=== PATIENT | male | born 1970 | race Caucasian/White ===

== ENCOUNTER 2016-07-14 14:21 | Emergency (ER) | payer OTHER ==
[2016-07-14 15:01] LABS: BASO % 0.2 % (0.2-1.2); EOS # 0.1 10_X3_uL (0.0-0.5); EOS % 1.1 % (0.8-7.0); GRAN # 8.9 10_X3_uL (1.8-5.4); GRAN % 73.5 % (34.0-67.9); LYMPH # 2.2 10_X3_uL (1.3-3.6); LYMPH % 17.8 % (21.8-53.1); MEAN CORPUSCULAR HEMOGLOBIN 33.5 pg (27.0-33.0); MEAN CORPUSCULAR HGB CONC 34.1 g/dL (32.0-36.0); MEAN CORPUSCULAR VOLUME 98.1 fL (79-92); MEAN PLATELET VOLUME 9.3 fl (7.5-11.5); MONO # 0.9 10_X3_uL (0.3-0.8); MONO % 7.4 % (5.3-12.2); PLATELET COUNT 248 x10_3/uL (163-337); RED BLOOD COUNT 4.18 x10_6/uL (4.6-6.1); WHITE BLOOD COUNT 12.1 x10_3/uL (4.2-9.1)
== END 2016-07-14 16:11 | disposition home or self-care (01) ==
LOC: ER 14:21
PROVIDERS: General Practice
DX: J06.9 Acute upper respiratory infection, unspecified (principal); G89.29 Other chronic pain; M54.9 Dorsalgia, unspecified; I10 Essential (primary) hypertension; M51.34 Other intervertebral disc degeneration, thoracic region; M43.8X4 Other specified deforming dorsopathies, thoracic region; F17.210 Nicotine dependence, cigarettes, uncomplicated; Z79.899 Other long term (current) drug therapy; Z88.0 Allergy status to penicillin
CPT/HCPCS: 36415; 72128; 72131; 85025; 87070; 87400; 87880; 99283-25; 99284